=== PATIENT | female | born 1995 | race Caucasian/White ===

== ENCOUNTER 2017-10-09 13:18 | Emergency (ER) | payer OTHER ==
[~2017-10-09] VITALS: Ht 157.5 cm; Wt 81.6 kg
[~2017-10-09 13:18] MED LIST: IBUPROFEN800 MG PO; PRENATAL1 TA2 PO; ZOFRAN ODT4 MG PO; ZOFRAN ODT4 MG SL
[2017-10-09 13:43] VITALS: BP 115/78
--- NOTE | 2017-10-09 13:45 | ED HEAD/FACIAL INJ COMPLAINT ---
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 PT WAS SEEN AT [facility] AND DISCHARGED WITHOUT ANY DIAGNOSTIC TESTS DONE. PT REPORTS TERRIBLE HEADACHE, NAUSEA, UNABLE TO EAT OR SLEEP. Triage Nurses Notes Reviewed? yes Onset: Abrupt Severity: moderate Severity Numbers: 7 Location: global Method of Injury: direct blow Loss of Consciousness: no loss of consciousness Associated Symptoms: DENIES : No Patient currently breastfeeds: No HPI: 21-year-old female with no medical history presents to ER for evaluation complaining of sharp constant headache generalized across her entire scalp going on for the past 2 days after she was struck on the right side of her head with a metal handicap bar. There was no loss of consciousness. She denies any vomiting however does report nausea. No blurry vision but does report the photosensitivity. She has been taking Tylenol without any improvement. She went to the emergency room in [facility] very after the incident however states they did not do any imaging and her headaches persist (Demetrius Judge) Past History Travel History Traveled to [place] past 21 day No Medical History Any Pertinent Medical History? none Neurological: NONE EENT: NONE Cardiovascular: NONE Respiratory: NONE Gastrointestinal: NONE Hepatic: NONE Renal: NONE Musculoskeletal: NONE Psychiatric: NONE Endocrine: NONE Blood Disorders: NONE Surgical History Surgical History: N Psychosocial History What is your primary language Korean Tobacco Use: Current Daily Use Daily Tobacco Use Amount/Type: => 5 Cigarettes daily Family History Hx Contributory? No (Demetrius Judge) Review of Systems Review of Systems Constitutional: Reports: see HPI. Comments Review of systems: See HPI, All other systems negative. Constitutional, no chills no fever HEENT: no sore throat no congestion Cardiovascular: No chest pain , no palpitation Skin: no rashes, no change in skin Respiratory: No dyspnea no cough GI: nausea no vomiting, no diarrhea, no bloating/constipation : No dysuria No hematuria, no frequency Muscle skeletal: No joint pain, no back pain, no neck pain, Neurologic: ,headache Heme/endocrine: No bruisinG Immunology: No lymphadenopathy (Demetrius Judge) Physical Exam Physical Exam General Appearance: well developed/nourished, no apparent distress, alert, awake Cranial Nerves: normal hearing, normal speech, PERRL Comments: Well-developed well-nourished patient in no apparent distress. Head/Face: Atraumatic no scalp hematoma no ecchymosis or signs of trauma, no facial swelling Eyes: PERRL, EOMI, no conjunctival injection. No nystagmus Ear:External auditory canal and Tympanic membranes clear, no erythema, no hemotympanum Nose: atraumatic.Normal inspection: No bleeding, no septal hematoma Throat: Moist mucous membranes.Pharynx normal. No pharyngeal erythema/exudate seen. No stridor/drooling or assymetry. No swelling or edema. Neck: Supple, nontender FROM Back: FROM Cardiovascular: Regular rate and rhythms no murmur Respiratory: No respiratory distress. Patient speaking in full complete sentences. Breath sounds clear to auscultation bilaterally: NO W/R/R Extremities: full range of motion Neuro: awake, alert, and oriented to person, place and time. There were no obvious focal neurologic abnormalities. Skin: Warm & dry;No appreciable rash on exposed skin Psych: Mood affect normal, normal memory normal judgment. (Demetrius Judge) Progress Differential Diagnosis: c-spine injury, facial fracture, globe injury, ICH, orbit fracture, skull fracture, CONCUSSION Plan of Care: Orders Procedure Date/time Status URINE 10/09 1345 Active I discussed with the patient at length plan of care injury occurred greater than 48 hours ago I discussed with her do not believe imaging is warranted at this time which she is in agreement with. I had an extensive conversation regarding need for close follow up with their primary care physician this week as well as return precautions. I answered all of their questions, they feel comfortable with the plan and follow-up care. I discussed with the patient the medications that they will receive. I gave them signs and symptoms that could indicate an adverse reaction. I have advised them to limit their activities until they can see how they respond to the medication. (Demetrius Judge) Departure Departure Time of Disposition: 1421 Disposition: HOME OR SELF CARE Condition: Stable Clinical Impression Primary Impression: Minor head injury without loss of consciousness Referrals: Mich Damon MD,[place] Additional Instructions: Brain rest. Limit TV cell phone computer usage. Fioricet for your headache. this has tylenol in it. zofran for nausea. bland diet. return with any concerns Departure Forms: Customer Survey General Discharge Information Prescriptions: Current Visit Scripts No Known Home Medications (Demetrius Judge) PA/[employer] REPORTS DEVELOPER Co-Sign Statement Statement: ED Attending supervision documentation- [] I saw and evaluated the patient. I have also reviewed all the pertinent lab results and diagnostic results. I agree with the findings and the plan of care as documented in the PA's/[employer] REPORTS DEVELOPER's documentation. [X] I have reviewed the ED Record and agree with the PA's/[employer]AC[employer] REPORTS DEVELOPER's documentation. [] Additions or exceptions (if any) to the PAs/[employer]AC[employer] REPORTS DEVELOPER's note and plan are summarized below: [] (Unruly CHICAS,Erik Magana)
[2017-10-09] MEDS ORDERED: FIORINAL 50-321 EACH PO (14:24)
[2017-10-09] MEDS ORDERED: ZOFRAN ODT4 M1 SL (14:24)
== END 2017-10-09 14:34 ==
LOC: ERH 13:18
DX: S09.90XA Unspecified injury of head, initial encounter (principal); W22.8XXA Striking against or struck by other objects, initial encounter; Y93.9 Activity, unspecified; Y92.9 Unspecified place or not applicable
CPT/HCPCS: 81025